=== PATIENT | female | born 1985 | race Asian ===

== ENCOUNTER 2020-04-29 07:46 | Inpatient (IN) ==
[2020-04-29] MEDS ORDERED: OXYTOCIN 30 UNITS/500 ML BAG IV PRN ×4 (07:58→16:09)
--- NOTE | 2020-04-29 08:28 | History & Physical Report ---
Date of Service April 29, 2020 Assessment & Plan (1) Vaginal bleeding in : - Proceed w/ IOL with cervical dilatation and pitocin per protocol History of Present Illness Primary Care Provider: NO PCP Susanna is a 34 y/o female EDC 05/06/20; LMP 07/29/19. She comes in for induction of labor for possible chronic abruption and possible IUGR. She had 2nd trimester bleeding during this . She had a cervical osborn placed on 04/28 for mechanical dilatation. positive contractions; positive movement; no fluid loss; no bloody show External FHT and external uterine monitors used; Category I tracing; Minimal FHT variability. Had regular appointments with OB. Labs: (04/29/20) Blood type: A positive Antibody screen: Neg H.0 Hct: 37.9 WBC: 10.21 Plt: 137 Rubella: Immune VDRL/RPR: Neg Gonorrhea: Neg Chlamydia: Neg HIV: Neg CF: Neg SMA: Neg HbSAg: Neg GBS Neg Allergies Allergy/AdvReac Type Severity Reaction Status Date / Time No Known Allergies Allergy Verified 04/23/20 15:07 Home Medications Home Medications Medication Instructions Recorded Confirmed Type prenat.vits,fran,[id number]-gyowc 1 tab PO DAILY 09/24/19 04/29/20 History Patient History Surgical History (Updated 09/24/19 @ 11:03 by Charity Ramos) [place] teeth removed Family History (Updated 09/24/19 @ 11:06 by Charity Ramos) Father Hypertension Dyslipidemia Social History (Updated 09/24/19 @ 11:07 by Charity Ramos) Preferred Language: Citizen Of [place] Communication Ability: Effective Veterinary Parasitologist Required: No Beliefs That Will Affect Care: None marital status: marital status details: Mikki Cerna (32) [phone] Current Living Situation: Spouse Current Living Situation Comment: lives with spouse, no pets current occupational status: employed current occupation: interface analyst Other Information That Helps Us Care for You: No Feels Safe at Home: Yes Smoking Status: Never smoker Hx Alcohol Use: No Hx Substance Use: No Review of Systems Constitutional: denies fever, chills, sweat, headache Respiratory: denies shortness of breath, difficulty breathing Cardiac: denies chest pain, palpitations, chest pressure Breast: denies breast pain : denies dysuria Physical Exam Physical Exam: General: Alert, oriented. No acute distress. Cardiac: Regular rate and rhythm, no murmurs/rubs/gallops. Respiratory: Clear to auscultation bilaterally a/p, no wheezes/rales/rhonchi. No increased work of breathing. Symmetrical chest rise. No respiratory distress. Abdomen: Gravid; positive contractions Pelvic: Normal external appearance Manual OB Exam: + cervical dilation 4 cm, + cervical effacement 80% and + station -1 OB Exam Monitor Tracing: + external FHT monitor used per Dr. Browne Lower Extremities: No lower extremity edema or swelling. No deep calf pain. Alistair's negative bilaterally Results & Data Vital Signs (Past 12 Hours) Vital Signs Temp Pulse Resp BP 04/29/20 08:02 36.7 C 78 20 110/65 04/29/20 08:01 78 110/65
[2020-04-29 08:29] LABS: Hematocrit (blood only) 37.9 % (37-47); Mean Corpuscular Hemoglobin 34.3 pg (25-34); Mean Platelet Volume 10.9 fL (7.4-10.4); Platelet Count 137 K/uL (130-400); RDW Coefficient of Variation 13.6 % (11.5-14.5); RDW Standard Deviation 49.2 fL (36.4-46.3); Red Blood Count 3.79 M/uL (4.2-5.4); White Blood Count 10.21 K/uL (4.8-10.8)
[2020-04-29 08:30] LABS: Mean Corpuscular Hgb Conc 34.3 g/dL (32-36)
--- NOTE | 2020-04-29 08:47 | History & Physical Report ---
Date of Service April 29, 2020 Assessment & Plan (1) Vaginal bleeding in : She has now 4 to 5 cm Pitocin will be started monitor fetus COVID negative strep negative Admission and Anticipated Discharge Date Admission Date: April 29, 2020 History of Present Illness Primary Care Provider: NO PCP 39 weeks gestational age patient is being induced for 2 reasons #1 as she has had some ongoing bleeding and there is a possibility of abruption there is also was concern earlier in the for IUGR however recent ultrasounds have showed a baby in the normal estimated weight range patient received a cervical Page last night by the on-call provider this morning she has no bleeding she is feeling some contractions Allergies Allergy/AdvReac Type Severity Reaction Status Date / Time No Known Allergies Allergy Verified 04/23/20 15:07 Home Medications Home Medications Medication Instructions Recorded Confirmed Type prenat.vits,fran,waq-drju-tgafl 1 tab PO DAILY 09/24/19 04/29/20 History Patient History Surgical History (Updated 09/24/19 @ 11:03 by [facility]) [place] teeth removed Family History (Updated 09/24/19 @ 11:06 by [facility]) Father Hypertension Dyslipidemia Social History (Updated 09/24/19 @ 11:07 by [employer]) Preferred Language: A[place]i Communication Ability: Effective Sorting Supervisor Required: No Beliefs That Will Affect Care: None marital status: marital status details: Mikki Cerna (32) [phone] Current Living Situation: Spouse Current Living Situation Comment: lives with spouse, no pets current occupational status: employed current occupation: network systems analyst Other Information That Helps Us Care for You: No Feels Safe at Home: Yes Smoking Status: Never smoker Hx Alcohol Use: No Hx Substance Use: No Physical Exam Constitutional: WD/WN, vitals as above Respiratory: normal respiratory effort, lungs clear to auscultation Cardiovascular: RRR, no murmur, no edema Gastrointestinal (Abdomen): normal bowel sounds, soft, nontender, no hepatosplenomegaly Genitourinary: normal external appearance Manual OB Exam: + cervical dilation 4 cm, + cervical effacement 80% and + station -1 OB Exam Monitor Tracing: + external FHT monitor used Results & Data ([facility]) Vital Signs (Past 12 Hours) Vital Signs Temp Pulse Resp BP 04/29/20 08:02 98.1 F 78 20 110/65 04/29/20 08:01 78 110/65 Coding Level of Care Code None Diagnoses Vaginal bleeding in O46.90
[2020-04-29] MEDS: LACTATED RINGER'S 1,000 ML IV PRN ×2 (09:12→11:38)
[2020-04-29] MEDS ORDERED: ePHEDrine sulfate 50 MG/ML AMP ONE (11:06)
[2020-04-29] MEDS ORDERED: BUPIVACAINE 0.25% 30 ML VIAL ONE (11:06)
[2020-04-29] MEDS ORDERED: fentaNYL 2MCG/ML ROPIV 1.25MG/ML 100 ML BAG EPI ONE (11:07)
[2020-04-29] MEDS ORDERED: fentaNYL citrate 100 MCG/2 ML VIAL ONE (11:07)
--- NOTE | 2020-04-29 11:30 | Anesthesiology Consultation ---
Date of Service April 29, 2020 Assessment & Plan (1) Encounter for pre-operative examination: Chart Review Chart Review: Acceptable Risk for Surgery Consults Requested none ASA ASA2 Proposed Anesthesia Anesthesia Type: Labor Epidural Risk / Benefits Reviewed With: PT / POA / Parent / Guardian, Accepts Plan and Informed Consent Obtained History Height/Weight Height: 5 ft 3 in Weight: 64.41 kg Allergies Allergy/AdvReac Type Severity Reaction Status Date / Time No Known Allergies Allergy Verified 04/23/20 15:07 Medications Home Medications Medication Instructions Recorded Confirmed Last Taken prenat.vits,fran,[id number] 1 tab PO DAILY 09/24/19 04/29/20 04/27/20 22:00 Active Medications Generic Name Dose Route Start Last Admin Trade Name Freq PRN Reason Stop Dose Admin Lactated Ringer's 1,000 mls @ 125 mls/hr 04/29/20 07:58 04/29/20 11:38 Lr IV 05/01/20 07:57 999 mls/hr .Q8H PRN Administration L&D Protocol Protocol Oxytocin 30 units in 500 mls @ 2 mls/hr 04/29/20 08:43 04/29/20 09:12 Pitocin IV 05/29/20 08:42 0.12 units/hr .Q24H PRN 2 mls/hr Labor Induction/Augmentation Administration Protocol 0.12 UNITS/HR NPO Date Last Intake of Fluids: 04/29/20 Time Last Intake of Fluids: 11:27 Date Last Intake of Solids: 04/29/20 Time Last Intake of Solids: 07:00 Past Medical History Medical History Encounter for anatomic survey growth restriction Hx of varicella Yeast infection Exercise / Class Metabolic Activity II 4-5 Yardwork/Stairs/Walk up hill Past Family History Family History Father Hypertension Dyslipidemia Past Surgical History Surgical History [place] teeth removed Past Anesthesia History No Family Hx of Anesthesia Complications History of PONV No Hx of PONV Social History Smoking Status: Never smoker Hx Alcohol Use: No Hx Substance Use: No Review of Systems Patient denies history of abnormal bleeding or bleeding disorder. Patient denies active use of anticoagulants other than low dose aspirin. Patient denies numbness, tingling or weakness in lower extremities. Negative for chest pain or shortness of breath. Patient denies active symptoms of GERD. Physical Exam Vital Signs Last Vital Signs Temp 36.5 C 04/29/20 11:05 Pulse 71 04/29/20 11:22 Resp 20 04/29/20 11:05 BP 133/91 04/29/20 11:18 Pulse Ox 97 04/29/20 11:22 Constitutional not obese (Gravid uterus) ENMT Mouth: no TMJ abnormality and oral opening not small Thyromental Distance: > or= 3.5 Finger Breadths Mallampati Class: II Neck normal visual inspection; neck extension not limited Respiratory normal respiratory effort Auscultation: lungs clear to auscultation bilaterally Cardiovascular Rate/Rhythm: regular rate and regular rhythm Heart Sounds: no murmur Neurologic moves all extremities Motor/Sensory: no sensory deficit Psychiatric Orientation: alert and oriented x 3 Testing Laboratory Results 04/29/20 08:18
[2020-04-29] MEDS ORDERED: NALOXONE HCL 1 MG in SODIUM CHLORIDE 0.9% 1000ML 1,000 ML IV PRN (12:08)
[2020-04-29] MEDS ORDERED: DiphenhydrAMINE HCL 50 MG/ML VIAL IV PRN (12:08)
[2020-04-29] MEDS ORDERED: ONDANSETRON INJ 2 MG/ML 2 ML VIAL IV PRN (12:08)
[2020-04-29] MEDS ORDERED: fentaNYL 2MCG/ML ROPIV 1.25MG/ML 100 ML BAG EPI PRN (12:08)
[2020-04-29] MEDS ORDERED: ePHEDrine sulfate 50 MG/ML AMP IV PRN (12:08)
[2020-04-29] MEDS ORDERED: NALOXONE HCL 0.4 MG/1 ML VIAL/CARP IV PRN (12:08)
--- NOTE | 2020-04-29 16:06 | Delivery Summary ---
Vaginal Delivery Summary Date of Service April 29, 2020 Vaginal Delivery Summary Spontaneous vaginal delivery. Patient was induced for possible abruption possible growth restriction responded well to Pitocin and then artificial rupture of membranes she was group B strep negative and COVID negative she progressed to full dilatation pushed over a second-degree tear of the perineum the baby in occiput anterior position mouth and nares were suctioned with bulb the fluid was clear there was no nuchal cord baby was delivered by gentle traction no excessive force live vigorous male cord clamped and cut cord gases obtained cord blood obtained placenta removed with gentle traction second- degree tear repaired with 3-0 Vicryl sponge and instrument counts were correct estimated blood loss 300 mL
[2020-04-29] MEDS ORDERED: SUPERCREAM 0.870% 15 GM JAR EXT PRN (16:09)
[2020-04-29] MEDS ORDERED: DIPHTHERIA/TETANUS/PERTUSSIS 0.5 ML SYR/VIAL IM ONE (16:09)
[2020-04-29] MEDS ORDERED: OXYCODONE/ACETAMINOPHEN 5mg/325mg TAB PO PRN (16:09)
[2020-04-29] MEDS ORDERED: ACETAMINOPHEN 325 MG TAB PO PRN (16:09)
[2020-04-29] MEDS ORDERED: bisacodyL 10 MG SUPP PR PRN (16:09)
[2020-04-29] MEDS ORDERED: BENZOCAINE 20% AER SPR 82.5 GM CAN EXT PRN (16:09)
[2020-04-29] MEDS ORDERED: HYDROCORTISONE ACETATE 25 MG SUPP PR PRN (16:09)
[2020-04-29 16:29] LABS: Base Excess Cord Venous Blood -1.4 mEq/L (-7.7-1.9); Cord Venous Blood HCO3 25 mmol/L (18.4-26.8); Cord Venous Blood PCO2 49 mmHg (30.4-57.2); Cord Venous Blood PO2 26 mmHg (14.1-43.3); Cord Venous Blood pH 7.33 (7.20-7.44)
[2020-04-29 16:36] LABS: Base Excess Cord Arterial Bld -0.2 mEq/L (-9-1.8); CO2 Cord Arterial Blood 63 mmHg (39.1-73.5); HCO3 Cord Arterial Blood 29 mmol/L (19.7-28.5); PO2 Cord Arterial Blood 17 mmHg (4.1-31.7); pH Cord Arterial Blood 7.27 (7.1-7.38)
[2020-04-29 16:42] LABS: O2 Saturation Cord Venous Bld < 60.0 % (<68)
[2020-04-29 16:43] LABS: Oxygen Sat Cord Arterial Blood < 60.0 % (<60)
--- NOTE | 2020-04-29 18:02 | Anesthesia Procedure Note ---
Date of Service April 29, 2020 Anesthesia Post Epidural Note Vital Signs Vital Signs: Temp Pulse Resp BP Pulse Ox 36.7 C 105 H 20 105/59 L 94 04/29/20 16:05 04/29/20 17:59 04/29/20 17:35 04/29/20 17:59 04/29/20 16:06 Notes Mental Status: alert / awake / arousable and participated in evaluation Nausea / Vomiting: adequately controlled Pain: adequately controlled Airway Patency, RR, SpO2: stable & adequate BP & HR: stable & adequate Hydration State: stable & adequate Neuraxial Anesthesia: was administered and sensory block is resolving Anesthetic Complications: no major complications apparent and Pt Satisfied with anesthetic care Epidural: Removed without complications and With tip intact
[2020-04-29] MEDS: DOCUSATE SODIUM 100 MG CAP PO SCH (21:12)
[2020-04-29] MEDS: IBUPROFEN 600 MG TAB PO PRN (21:13)
[2020-04-30] MEDS: IBUPROFEN 600 MG TAB PO PRN ×4 (03:42→22:01)
[2020-04-30 06:14] LABS: Hematocrit (blood only) 32.1 % (37-47); Hemoglobin 11.1 g/dL (12.0-16.0); Mean Corpuscular Hemoglobin 34.5 pg (25-34); Mean Corpuscular Hgb Conc 34.6 g/dL (32-36); Mean Corpuscular Volume 99.7 fL (80-100); Mean Platelet Volume 11.1 fL (7.4-10.4); Platelet Count 134 K/uL (130-400); RDW Coefficient of Variation 13.7 % (11.5-14.5); RDW Standard Deviation 49.4 fL (36.4-46.3); Red Blood Count 3.22 M/uL (4.2-5.4); White Blood Count 12.63 K/uL (4.8-10.8)
--- NOTE | 2020-04-30 06:17 | Obstetrical Progress Note ---
Date of Service <Jose Marte MD - Last Filed: 04/30/20 07:48> April 30, 2020 Assessment & Plan <Jose Mrate MD - Last Filed: 04/30/20 07:48> (1) : PPD#1 Doing well, ambulating well, voiding well, tolerating oral intake. Continue routine care. After discharge will have follow-up in 6 weeks. Subjective <Jose Marte MD - Last Filed: 04/30/20 07:48> Mrs. Valdivia is a 34 y/o female ; PPD #1 following spontaneous vaginal delivery at 39 weeks; doing well this morning; light abdominal cramping & 2/10 pain well managed on analgesics; voiding well; tolerating meals overnight and able to ambulate some; some persistent spotting with intermittent improvement this morning. Review of Systems Constitutional: denies fever, chills, sweat, headache Respiratory: denies shortness of breath, difficulty breathing Cardiac: denies chest pain, palpitations, chest pressure Breast: denies breast pain : denies dysuria Physical Exam <Jose Marte MD - Last Filed: 04/30/20 07:48> General: Alert, oriented. No acute distress. Cardiac: Regular rate and rhythm, no murmurs/rubs/gallops. Respiratory: Clear to auscultation bilaterally a/p, no wheezes/rales/rhonchi. No increased work of breathing. Symmetrical chest rise. No respiratory distress. Abdomen: Soft, nontender, nondistended. Bowel sounds present. Uterus: Uterine fundus firm, palpable 1cm below umbilicus. Lower Extremities: No lower extremity edema or swelling. No deep calf pain. Alistair's negative bilaterally. Results & Data <Jose Marte MD - Last Filed: 04/30/20 07:48> Vital Signs (Past 12 Hours) Vital Signs Temp Pulse Resp BP Pulse Ox 04/30/20 03:30 36.6 C 65 18 101/64 98 04/29/20 23:20 36.8 C 66 18 92/56 L 98 04/29/20 20:05 36.6 C 83 18 124/75 98 <Kobi Browne MD, FACOG - Last Filed: 04/30/20 07:49> Co-Signing Physician Notes Resident Physician Supervision Note: I was present with Dr. Garcia during the history and exam. I discussed the case with the resident and agree with the findings and plan as documented in the note. Any exceptions or clarifications are listed here: [None] Documented By: Kobi Browne MD, FACOG Resident Activity Tracking <Jose Marte MD - Last Filed: 04/30/20 07:48> Resident Involvement: Resident Care Provided Care Provided: OB Delivery
[2020-04-30] MEDS: DOCUSATE SODIUM 100 MG CAP PO SCH ×2 (08:24→20:11)
[2020-04-30] MEDS: PRENATAL VITAMIN 1 TAB PO SCH (08:24)
[2020-04-30] MEDS ORDERED: NON-FORMULARY MEDICATION (Prenat.Vits,Cal,Min-Iron-Folic 1 TAB) PO SCH (09:00)
[2020-04-30] MEDS ORDERED: bisacodyL 5 MG TABEC PO SCH (20:00)
[2020-05-01 06:06] LABS: Hematocrit (blood only) 32.3 % (37-47); Hemoglobin 10.9 g/dL (12.0-16.0)
--- NOTE | 2020-05-01 06:33 | Obstetrical Progress Note ---
Date of Service <Jose Marte MD - Last Filed: 05/01/20 06:40> May 01, 2020 Assessment & Plan <Jose Marte MD - Last Filed: 05/01/20 06:40> (1) : PPD#2 Doing well, ambulating well, voiding well, tolerating oral intake. Continue routine care. After discharge will have follow-up in 6 weeks. Subjective <Jose Marte MD - Last Filed: 05/01/20 06:40> Mrs. Valdivia is a 34 y/o female ; PPD #2 following spontaneous vaginal delivery at 39 weeks; doing well this morning; light abdominal cramping & 3/10 pain well managed on analgesics; voiding well; tolerating meals overnight and able to ambulate some; some persistent spotting with some improvement this morning. Review of Systems Constitutional: denies fever, chills, sweat, headache Respiratory: denies shortness of breath, difficulty breathing Cardiac: denies chest pain, palpitations, chest pressure Breast: denies breast pain : denies dysuria Physical Exam <Jose Marte MD - Last Filed: 05/01/20 06:40> General: Alert, oriented. No acute distress. Cardiac: Regular rate and rhythm, no murmurs/rubs/gallops. Respiratory: Clear to auscultation bilaterally a/p, no wheezes/rales/rhonchi. No increased work of breathing. Symmetrical chest rise. No respiratory distress. Abdomen: Soft, nontender, nondistended. Bowel sounds present. Uterus: Uterine fundus firm, palpable 2cm below umbilicus. Lower Extremities: No lower extremity edema or swelling. No deep calf pain. Alistair's negative bilaterally. Results & Data <Jose Marte MD - Last Filed: 05/01/20 06:40> Vital Signs (Past 12 Hours) Vital Signs Temp Pulse Resp BP 04/30/20 23:35 36.6 C 84 18 100/65 04/30/20 20:00 36.5 C 73 18 102/66 <Patricia Pickens MD, FACOG - Last Filed: 05/01/20 09:33> Co-Signing Physician Notes Resident Physician Supervision Note: I interviewed and examined the patient. Discussed with Dr. Martinez and agree with findings and plan as documented in the note. Any exceptions or clarifications are listed here: [None] Documented By: Patricia Pickens MD, FACOG Resident Activity Tracking <Jose Marte MD - Last Filed: 05/01/20 06:40> Resident Involvement: Resident Care Provided Care Provided: OB Delivery
[2020-05-01] MEDS: IBUPROFEN 600 MG TAB PO PRN ×2 (06:36→11:30)
[2020-05-01] MEDS: DOCUSATE SODIUM 100 MG CAP PO SCH (07:41)
[2020-05-01] MEDS: PRENATAL VITAMIN 1 TAB PO SCH (07:41)
== END 2020-05-01 12:31 | disposition home or self-care (01) | DRG 807 ==
LOC: 4S1 07:46 → 4S2 18:58